=== PATIENT | male | born 1995 | race Caucasian/White ===

== ENCOUNTER 2020-01-08 12:13 | Emergency (ER) | payer OTHER, SELFPAY ==
--- NOTE | ~2020-01-08 | XR_ITS ---
EXAMINATION: XR chest 2V DATE: 01/08/2020 12:54 INDICATION: Shortness of breath and cough TECHNIQUE: PA and lateral views of the chest are obtained. COMPARISON: 02/03/2014 FINDINGS: The lungs are free of acute opacities. There is no pleural effusion or pneumothorax. The ca rdiomediastinal silhouette is normal. The visualized bones and soft tissues are unremarkable. IMPRESSION: 1. No acute cardiopulmonary abnormality. Reviewed, dictated and finalized at location A.
--- NOTE | 2020-01-08 12:26 | ED.GENADULT ---
HPI - General Adult General Chief complaint: Upper Respiratory Infection Stated complaint: Respiratory issues Time Seen by Provider: 01/08/20 12:25 Source: patient Mode of arrival: ambulatory Limitations: no limitations History of Present Illness HPI narrative: 24-year-old male patient presents to the [facility] with complaints of cough and some shortness of breath at times for the past 3 weeks. Patient states about 3 nights ago he thinks he might of been running a fever but did not take his temperature. Patient states he was having chills and sweating. Patient denies any headaches, ear pain, runny nose or sore throat. Denies any abdominal pain, nausea, vomiting or diarrhea. Patient states at times he coughs so hard that he vomits a little bit but nothing persistent. Patient states he did find a rescue inhaler that he used only twice in the last 3 days. Patient states he has had multiple respiratory issues including pneumothorax x2, pneumonia x3. Patient states he started having respiratory issues after getting back from [facility]. Patient states he was tested for COVID about 2 days ago and came back negative. Related Data Allergies Allergy/AdvReac Type Severity Reaction Status Date / Time No Known Allergies Allergy Verified 01/08/20 12:37 Review of Systems Review of Systems: Narrative: CONSTITUTIONAL: Denies fever, positive chills and sweats. EYES: Denies visual changes, redness, or discharge. ENT: Denies rhinorrhea, congestion, sore throat, or otalgia. CARDIOVASCULAR: Denies chest pain, palpitations, or edema. RESPIRATORY: Positive cough with intermittent dyspnea. GASTROINTESTINAL: Denies abdominal pain, nausea, vomiting, or diarrhea. GENITOURINARY: Denies dysuria or hematuria. SKIN: Denies rash or itching. MUSCULOSKELETAL: Denies back pain, joint pain, or myalgia. NEUROLOGIC: Denies headache, numbness, or weakness. PSYCHIATRIC: Denies anxiety or depression. [facility] Past Medical History Medical History (Updated 01/08/20 @ 13:10 by EDELMIRA Rossi) Pneumonia Pneumothorax Comments At the time of my signature I agree with nursing past medical history, surgical, social, and family history. There is no relevant family history pertinent to the presenting complaint. Exam Narrative: Exam Narrative: GENERAL: Well-appearing, well-nourished, and in no acute distress. HEAD: Normocephalic, atraumatic. EYES: PERRLA and EOMI. ENT: Nares clear, no rhinorrhea or epistaxis. Mucous membranes moist. Posterior pharynx with no erythema, tonsillectomy, exudates or lesions present. Bilateral TMs are clear no erythema or foreign bodies to the canal. NECK: Supple. No lymphadenopathy CHEST: Clear to auscultation. No respiratory distress. Patient able talk in clear complete sentences. HEART: Regular rate and rhythm. No murmur heard. Normal peripheral pulses. ABDOMEN: Soft, nontender, nondistended, normal active bowel sounds. EXTREMITIES: Normal range of motion. No edema. SKIN: Warm, dry, no rash. NEURO: No focal deficits. Alert and oriented x3. Course Reevaluation(s) Reevaluation #1: Reevaluated patient after his x-ray resulted. Discussed with him that his x-ray is clear and the fact that he was tested negative for COVID is reassuring. Discussed with patient the fact that he does not has not been running any fevers is also reassuring and I do think that because this is been going on for 3 weeks this is more of a bronchitis viral illness. Discussed with him that we will discharge him home with rescue inhaler, oral steroids and Tessalon Perles to help with the cough. Discussed with patient if he continues to have worsening symptoms he would need to go to the ER for further evaluation. Patient verbalized understanding of this denies any other questions or concerns at this time. Date: 01/08/20 Time: 13:09 Vital Signs Vital signs: Vital Signs Temperature 37.7 C H 01/08/20 12:31 Pulse Rate 102 H 01/08/20 12:31 Respiratory Rate 18
[2020-01-08 12:31] VITALS: BP 147/75; PULSE 102; RESP 18; TEMP 37.7; O2SAT 100
== END 2020-01-08 13:18 | disposition home or self-care (01) ==
PROVIDERS: Emergency Provider Nurse Practitioner Family
DX: J06.9 Acute upper respiratory infection, unspecified (principal); J40 Bronchitis, not specified as acute or chronic
CPT/HCPCS: 71046; 99213; G0463